=== PATIENT | female | born 1975 | race Caucasian/White ===

== ENCOUNTER 2017-08-28 19:46 | Emergency (ER) | payer BC ==
[~2017-08-28] VITALS: Ht 152.4 cm; Wt 80.9 kg
[~2017-08-28 19:46] MED LIST: ASPIRIN E.C. 8181 MG PO; CARDI-OMEGA1000 MG PO; CORGARD80 MG PO; FOLIC ACID0.4 MG PO; LEVOTHYROXINE PO; LEVOXYL0.025 MG PO; LIPITOR 40MG TA40 MG PO; MAG-G500 MG PO; MAXALT5 MG PO; NAPRELAN375 MG PO; PRENATAL1 TAB PO; PROTONIX 40MG T40 MG PO; THE MEDICINE S200 M2 PO; TOPAMAX 25MG25 M1 PO; VITAMIN B100 CO1 TAB PO; VITAMIND3 5000 PO; ZOFRAN ODT4 MG PO
[2017-08-28 20:08] VITALS: BP 152/74; TEMP 98.3
[2017-08-28] MEDS ORDERED: CEPHALEXIN500 M1 PO (21:04)
[2017-08-28 21:14] VITALS: PULSE 83
== END 2017-08-28 21:15 | disposition home or self-care (01) ==
LOC: COL.ER 19:46
DX: M79.621 Pain in right upper arm (principal); E03.9 Hypothyroidism, unspecified; Z90.49 Acquired absence of other specified parts of digestive tract; Z79.82 Long term (current) use of aspirin; Z88.0 Allergy status to penicillin; Z88.1 Allergy status to other antibiotic agents

== ENCOUNTER 2018-08-10 21:10 | Emergency (ER) | payer BC ==
[~2018-08-10] VITALS: Ht 162.6 cm; Wt 81.8 kg
[~2018-08-10 21:10] MED LIST changes: +CEPHALEXIN500 M1 PO
[2018-08-10 22:41] LABS: BASO % 0.3 % (0.0-2.0); EOS % 0.1 % (0-4.0); GRAN # 5.6 (1.4-6.5); GRAN % 77.5 % (42.2-75.2); HEMATOCRIT 41.3 % (37.0-47.0); LYMPH # 1.2 (1.2-3.4); MEAN CELL VOLUME 88 fl (80.0-100.0); MEAN CORPUSCULAR HEMOGLOBIN 30 pg (27.0-31.0); MEAN CORPUSCULAR HGB CONC 34 g/dl (33.0-37.0); MONO # 0.4 (0.1-0.6); MONO % 5.7 % (1.7-9.3); PLATELET COUNT 255 K/mm3 (130-400); REDCELL DISTRIBUTION WIDTH-CV 12.8 % (11.5-14.5)
[2018-08-10] MEDS ORDERED: CARAFATE 1GM1 G PO (22:45)
[2018-08-10] MEDS ORDERED: PRIL40 PO (22:45)
[2018-08-10] MEDS ORDERED: LEXAPRO 10MG10 MG PO (22:45)
[2018-08-10] MEDS ORDERED: CORTEF5 MG PO (22:45)
[2018-08-10] MEDS ORDERED: FLORINEF ACETA0.1 MG PO (22:47)
[2018-08-10 22:53] LABS: ALBUMIN 3.5 gm/dL (3.5-5.0); BILIRUBIN,TOTAL 2.5 mg/dL (0.0-1.0); C-REACTIVE PROTEIN 4.5 mg/dL (0.0-0.9); CALCIUM 8.2 mg/dL (8.4-10.2); CREATININE, serum 0.85 mg/dL (0.52-1.25); POTASSIUM 3.1 mmol/L (3.4-5.0); TOTAL PROTEIN 6.2 gm/dL (6.4-8.2)
[2018-08-11 01:44] VITALS: TEMP 100.6
[2018-08-11 02:39] VITALS: BP 120/66; PULSE 98
== END 2018-08-11 02:40 | disposition home or self-care (01) ==
LOC: COL.ER 21:10
PROVIDERS: Family Medicine
DX: B34.9 Viral infection, unspecified (principal); E87.5 Hyperkalemia; I10 Essential (primary) hypertension; Z79.51 Long term (current) use of inhaled steroids
CPT/HCPCS: J1720; J1885; J2405; J3010; J7030

== ENCOUNTER → 2019-03-28 | Outpatient (CLI) | payer BC ==
[~2019-03-28] MED LIST changes: +CARAFATE 1GM1 G PO; +CORTEF5 MG PO; +FLORINEF ACETA0.1 MG PO; +LEXAPRO 10MG10 MG PO; +PRIL40 PO
== END ==
LOC: MC.RAD 07:54
DX: Z12.31 Encounter for screening mammogram for malignant neoplasm of breast (principal)

== ENCOUNTER → 2021-03-26 | Outpatient (CLI) | payer BC | LOC: MC.RAD 09:40 | DX: Z12.31 Encounter for screening mammogram for malignant neoplasm of breast (principal) ==